=== PATIENT | female | born 1970 | race Two or more races ===

== ENCOUNTER → 2024-05-04 | Outpatient (CLI) | payer MEDICAID, SELFPAY ==
--- NOTE | 2024-05-04 13:45 | XR_ITS ---
Examination: Screening digital mammography, bilateral Computer aided detection 3-D breast Tomosynthesis, bilateral Date and time of exam: May 04, 2024 1353 hours Compared to mammograms dating to July 15, 2014 Indication: Screening Technique: Nonmagnified MLO, CC views of the breasts to been obtained, reconstructed from 3-D Tomosynthesis images. R2 computer aided detection program utilized for evaluation of suspicious masses and/or abnormal calcifications. 3-D Tomosynthesis images obtained. Findings: Scattered areas of fibroglandular density. Benign calcifications. No interval suspicious masses Impression: BI-RADS category II: Benign Findings. Recommend 1 year follow-up mammogram.
== END | disposition home or self-care (01) ==
LOC: CDIM 13:45
PROVIDERS: PCP Physician Assistant; Referring Provider Physician Assistant; Visit Provider Physician Assistant
DX: Z12.31 Encounter for screening mammogram for malignant neoplasm of breast (principal); R92.323 Mammographic fibroglandular density, bilateral breasts; R92.1 Mammographic calcification found on diagnostic imaging of breast
CPT/HCPCS: 77063; 77067

== ENCOUNTER 2024-06-14 14:48 | Emergency (ER) | payer MEDICAID, SELFPAY ==
[2024-06-14 14:50] VITALS: BMI 25.3
[2024-06-14 15:44] VITALS: BP 119/78; PULSE 65; RESP 18; TEMP 36.6; O2SAT 99
--- NOTE | 2024-06-14 15:49 | XR_ITS ---
Examination: PA lateral chest 2 views TECHNIQUE: Upright PA lateral chest 2 views Exam date and time: June 14, 2024 1617 hours INDICATIONS: Chest pain today. FINDINGS: Normal heart size No lobar pneumonia or pulmonary edema Moderate osteopenia IMPRESSION: No pneumonia or pulmonary edema
--- NOTE | 2024-06-14 15:49 | EKG_ITS ---
[facility] Test Date: 2024-06-14 Pat Name: LILY MENESES Department: Room: - Gender: Female [employer]: : 1970 Requested By: Susan Hernandez ([facility]) [place] Order Number: [id number] Reading MD: Susan Hernandez ([facility]) [place] Measurements Intervals [place] Rate: 57 P: 10 AL: 140 QRS: 47 QRSD: 84 T: 9 QT: 384 QTc: 375 Interpretive Statements SINUS BRADYCARDIA No previous ECG available for comparison /[id number]/[email or web address]/[id number]
--- NOTE | 2024-06-14 15:55 | PD.EDRME ---
Rapid Medical Screening Exam RME Arrival date/time: 06/14/24 14:48 54-year-old female presents the emergency department with complaints of generalized fatigue, chest pain, approximately 2 weeks. I have greeted and performed a focused initial assessment of this patient. Initial appropriate labs ordered at this time. A comprehensive ED assessment and evaluation of the patient and analysis of all test and completion of medical decision making process will be conducted by additional ED provider. Chief Complaint: Dizziness Time Seen by Provider: 06/14/24 15:38 Vital signs: Vital Signs Temperature 98 F 06/14/24 15:44 Pulse Rate 65 06/14/24 15:44 Respiratory Rate 18 06/14/24 15:44 Blood Pressure 119/78 06/14/24 15:44 Pulse Oximetry (%) 99 06/14/24 15:44 Oxygen Delivery Method Room Air 06/14/24 15:44
[2024-06-14 16:05] LABS: Basophils % (Auto) 1 % (0-2.5); Eosinophils # (Auto) 0.1 Thou/mm3 (0.0-0.5); Eosinophils % (Auto) 2 % (0-10); Hematocrit 39.7 % (36.0-46.0); Hemoglobin 13.5 g/dL (12.0-16.0); Immature Granulocytes % (Auto) 0 % (0-0); Immature Granulocytes Auto 0.02 Thou/mm3 (0.00-0.00); Lymphocytes # (Auto) 1.6 Thou/mm3 (1.0-4.8); Lymphocytes % (Auto) 27 % (10-50); Mean Corpuscular Hemoglobin 29.9 pg (25.0-35.0); Mean Corpuscular Volume 88 fL (80-100); Monocytes # (Auto) 0.4 Thou/mm3 (0.0-0.8); Monocytes % (Auto) 7 % (0-12); Neutrophils # (Auto) 3.7 Thou/mm3 (1.8-7.7); Neutrophils % (Auto) 63 % (37-80); Nucleated Red Blood Cell % 0 /100 WBC (0); Platelet Count 173 Thou/mm3 (140-440); RDW Standard Deviation 38.8 fL (36.4-46.3); Red Blood Count 4.51 Miln/mm3 (4.00-5.20); White Blood Count 5.9 Thou/mm3 (3.6-11.0)
[2024-06-14 16:21] LABS: Alanine Aminotransferase 15 U/L (10-49); Albumin, Serum 4.3 gm/dL (3.5-5.0); Albumin/Globulin Ratio 1.5 (1.2-2.2); Alkaline Phosphatase 63 U/L (46-116); Anion Gap 7 (7-16); Aspartate Amino Transferase 24 U/L (0-34); BUN/Creatinine Ratio 14 Ratio (12-20); Bilirubin,Total 0.7 mg/dL (0.3-1.2); Blood Urea Nitrogen 11 mg/dL (9-23); Calcium 9.2 mg/dL (8.3-10.6); Calcium (Corrected) 9.2 mg/dL (8.5-10.1); Carbon Dioxide 27.8 mMol/L (20.0-31.0); Chloride 104 mMol/L (98-107); Creatinine (Component) 0.8 mg/dL (0.6-1.3); Estimated Creatinine Clearance 78.2 mL/min (>60); Globulin 2.9 gm/dL (2.3-3.5); Glucose 117 mg/dL (74-106); Lipase 39 U/L (12-53); Osmolality,Calculated 277 (275-295); Potassium 4.3 mMol/L (3.4-5.1); Sodium 139 mMol/L (136-145); Total Protein 7.2 gm/dL (5.7-8.2); Troponin I < 0.002 ng/mL (0.0-0.045); eGFR > 60 See Note
[2024-06-14 18:28] LABS: Collection Type, Urine Clean Catch
[2024-06-14 18:33] LABS: Bilirubin,Urine Negative (Negative); Blood,Urine Negative (Negative); Clarity,Urine Clear (Clear/Hazy); Color,Urine Yellow (Lt Yel-Yel); Glucose, Urine Negative (Negative); Hyaline Casts,Urine < 1 /hpf (0-1); Ketones,Urine Negative (Negative); Leukocyte Esterase,Urine Positive (Negative); Nitrite,Urine Negative (Negative); Protein,Urine Trace (Neg - Trace); RBC,Urine 2 /hpf (0-3); Specific Gravity,Urine 1.029 (1.001-1.035); Squamous Epithelial Cell,Urine 1 /hpf (0-5); Urobilinogen,Urine Negative mg/dL (0.0-1.0); WBC,Urine 6 /hpf (0-5)
[2024-06-14 18:45] LABS: HCG Qualitative,Urine Negative
[2024-06-14 19:54] LABS: Troponin I < 0.002 ng/mL (0.0-0.045)
[2024-06-14 20:35] VITALS: BP 112/70; PULSE 64; RESP 18; TEMP 36.9; O2SAT 95
--- NOTE | 2024-06-14 22:51 | PC.NURSE ---
patient was updated on her status, waiting for dr to review her imaging and labs, after bring pt to old triage to evaluate she decided to elope without waiting for the doctor.
== END 2024-06-14 23:01 | disposition left against medical advice (07) ==
PROVIDERS: Nurse Practitioner Primary Care; Emergency Provider Family Medicine
DX: R07.9 Chest pain, unspecified (principal); R53.83 Other fatigue; Z53.29 Procedure and treatment not carried out because of patient's decision for other reasons
CPT/HCPCS: 36415; 71046; 80053; 81001; 81025; 83690; 84484; 85025; 87400; 87811; 93005; 99281

== ENCOUNTER → 2024-06-29 | Outpatient (CLI) | payer MEDICAID, SELFPAY ==
--- NOTE | 2024-06-29 10:44 | XR_ITS ---
Examination: Hand, right 3 views Technique: Hand AP, oblique, lateral 3 views Date and time of exam: June 29, 2024 1113 hours INDICATIONS: Right hand pain beginning 3 weeks ago FINDINGS: Moderate juxta-articular bone demineralization Mild narrowing first metacarpal phalangeal joint Mild osteoarthritis interphalangeal joint first digit No cortical bone destruction No opaque foreign bodies No fractures Mild osteoarthritis distal interphalangeal joints second through fifth digits Mild osteoarthritis first carpometacarpal joint IMPRESSION: Mild osteoarthritis as above No fractures No erosive arthritis
== END | disposition home or self-care (01) ==
LOC: CDIM 10:29
PROVIDERS: PCP Physician Assistant; Referring Provider Physician Assistant; Visit Provider Physician Assistant
DX: M19.041 Primary osteoarthritis, right hand (principal)
CPT/HCPCS: 73130